=== PATIENT | female | born 1990 | race Caucasian/White ===

== ENCOUNTER 2018-07-15 18:03 | Emergency (ER) | payer SELFPAY ==
[2018-07-15 18:25] VITALS: BP 154/75
--- NOTE | 2018-07-15 18:47 | ED Physician Documentation ---
Sore Throat/Dental Pain - HISTORIAN Historian: patient - HPI Stated Complaint: Dental pain Chief Complaint: Dental Pain Additional Information: Patient is a 28-year-old female who presents to the ER with c/o dental pain that started last night after chipping tooth on some pizza. She has used orajel with no relief. She does not appear to be in any acute distress. Onset: days ago (last night) Context: Possible Infection. denies: Fractured Tooth Associated Symptoms: denies: fever, chills, swollen glands Worsened By: denies: heat, cold Relieved By: Ibuprofen helps Further Comments: no - ROS CONST: no problems CVS/RESP: none GI/: denies: nausea, vomiting MS/SKIN/LYMPH: denies: rash NEURO/PSYCH: none - PAST HX Past History: none Other History: none Immunizations: UTD Allergies/Adverse Reactions: Allergies Allergy/AdvReac Type Severity Reaction Status Date / Time aripiprazole [From Abilify] AdvReac Intermediate Dizziness Verified 07/15/18 18:25 tramadol AdvReac Intermediate Nausea/Vomi Verified 07/15/18 18:25 ting Home Medications: Ambulatory Orders Medication Instructions Recorded Amoxicillin 500 mg PO TID #30 capsule 07/15/18 Sertraline HCl [Zoloft] 50 mg PO DAILY 07/15/18 - SOCIAL HX Smoking History: greater than 1 pack/day Alcohol Use: rarely Drug Use: methamphetamines (hx of meth) - FAMILY HX Family History: No - VITAL SIGNS Vital Signs: Vital Signs Temp Pulse Resp BP Pulse Ox 97.3 F L 79 18 154/75 98 07/15/18 18:30 07/15/18 18:30 07/15/18 18:30 07/15/18 18:30 07/15/18 18:30 Dental Pain Physical Exam - EXAM General Appearance: no acute distress, alert Head/Neck: head nml inspection, trachea midline, no lymphadenopathy Eyes: eyes nml inspection, PERRL Mouth/Throat: lips nml, gums nml, pharynx nml, voice nml Ear/Nose: nml inspection Respiratory: no resp. distress, breath sounds nml CVS: reg. rate & rhythm, heart sounds nml Extremities: non-tender Skin: warm/dry Neuro/Psych: none Discharge Clincal Impression: Pain, dental Prescriptions: Amoxicillin 500 mg PO TID #30 capsule Referrals: Primary Doctor,No [Primary Care Provider] - 2 Days Additional Instructions: Take Amoxil 500 mg by mouth 3 times a day Ibuprofen 400 mg by mouth every 4-6 hours as needed or Aleve twice a day Follow up with dentist FAIZA Condition: Good Disposition: 01 HOME, SELF-CARE Decision to Admit: NO Decision Time: 18:30
== END 2018-07-15 18:30 | disposition home or self-care (01) ==
LOC: ED 18:03
DX: K08.89 Other specified disorders of teeth and supporting structures (principal); Z72.0 Tobacco use
CPT/HCPCS: 99281; 99282

== ENCOUNTER 2018-07-18 20:12 | Emergency (ER) | payer SELFPAY ==
[2018-07-18 20:20] VITALS: BP 120/57
--- NOTE | 2018-07-18 20:24 | ED Physician Documentation ---
General Adult - HISTORIAN Historian: patient - HPI Stated Complaint: Finger Laceration Chief Complaint: Laceration/Recheck/Suture (Left index finger) Additional Information: Patient is a 28-year-old female who presents to the ER with a finger laceration. She was using a juke box servicer and cut her middle phalanx of the left index finger. Bleeding is controlled. Modifying Factors: Box Knife Further Comments: no - ROS CONST: no problems EYES/ENT: none CVS/RESP: none GI/: none MS/SKIN/LYMPH: other (finger lac) NEURO/PSYCH: denies: headache, dizziness - PAST HX Past History: none Other History: none Surgeries/Procedures: none Immunizations: UTD. denies: tetanus (will update today) Allergies/Adverse Reactions: Allergies Allergy/AdvReac Type Severity Reaction Status Date / Time aripiprazole [From Abilify] AdvReac Intermediate Dizziness Verified 07/18/18 20:20 tramadol AdvReac Intermediate Nausea/Vomi Verified 07/18/18 20:20 ting Home Medications: Ambulatory Orders Medication Instructions Recorded Amoxicillin 500 mg PO TID #30 capsule 07/15/18 Sertraline HCl [Zoloft] 50 mg PO DAILY 07/15/18 - SOCIAL HX Smoking History: cigarettes, less than 1 pack/day Alcohol Use: occasionally Drug Use: none - FAMILY HX Family History: No - VITAL SIGNS Vital Signs: Vital Signs Temp Pulse Resp BP Pulse Ox 97.8 F 70 17 120/57 96 07/18/18 20:12 07/18/18 20:12 07/18/18 20:12 07/18/18 20:12 07/18/18 20:12 Procedures Wound Location: upper extremity (finger- left index) Wound Length: 2 cm Wound's Depth, Shape: linear, flap Wound Explored: no foreign body removed Irrigated w/ Saline (ccs): 250 Betadine Prep?: Yes Anesthesia: 1% Lidocaine Volume of Anesthetic: 4 ml Wound Debrided: minimal Wound Repaired With: sutures Suture Size/Type: 4:0 Number of Sutures: 3 Layer Closure?: No Sterile Dressing Applied?: Yes Progress - Progress Progress: Finger sutured- pt tolerated well ED Results Lab/Radiology - Orders Orders: ED Orders Category Date Time Status Diph,Pertuss(Acell),Tet Vac/Pf [Adacel] Med 07/18/18 20:23 Discontinued 0.5 ml IM .ONCE ONE Lidocaine 1% 20ml ([facility]) [Xylocaine] Med 07/18/18 20:22 Discontinued 10 mg IM NOW ONE General Adult Physical Exam - PHYSICAL EXAM GENERAL APPEARANCE: mild distress EENT: eye inspection normal, ENT inspection normal, SLIM NECK: normal inspection, supple RESPIRATORY: breath sounds normal CVS: reg rate & rhythm, heart sounds normal, equal pulses ABDOMEN: soft, normal bowel sounds SKIN: warm/dry, normal color, other (laceration to finger) EXTREMITIES: normal range of motion NEURO: oriented X3, CN's nml as tested, motor nml, sensation nml, cognition normal Discharge Clincal Impression: Finger laceration Referrals: Primary Doctor,No [Primary Care Provider] - 2 Days Additional Instructions: Keep area clean and dry Apply triple antibiotic ointment and dressing applied Follow up with PCP in 7-10 days to have sutures removed Watch for signs of infection; redness & drainage Condition: Good Disposition: 01 HOME, SELF-CARE Decision to Admit: NO Decision Time: 21:08
[2018-07-18] MEDS: LIDOCAINE HCL 1% MDV 200MG/20ML VIAL IM ONE (20:40)
[2018-07-18] MEDS: DIPH,PERTUSS(ACELL),TET VAC/PF 0.5 ML DISP.SYRIN IM ONE (21:33)
== END 2018-07-18 21:15 | disposition home or self-care (01) ==
LOC: ED 20:12
DX: S61.211A Laceration without foreign body of left index finger without damage to nail, initial encounter (principal); W26.0XXA Contact with knife, initial encounter; Y93.9 Activity, unspecified; Y92.9 Unspecified place or not applicable
CPT/HCPCS: 12001; 90471; 90715; 99282; 99283